=== PATIENT | female | born 1940 | race Caucasian/White ===

== ENCOUNTER 2017-07-11 15:09 | Outpatient (CLI) | payer MEDICARE | END 2017-07-11 15:10 | disposition home or self-care (01) | LOC: LABHHL 15:09 | PROVIDERS: ATTEND Surgery | DX: D24.1 Benign neoplasm of right breast (principal) | CPT/HCPCS: 88305 ==

== ENCOUNTER 2018-08-04 08:32 | Outpatient (CLI) | payer MEDICARE ==
--- NOTE | 2018-08-05 15:16 | Magnetic Resonance Report ---
BILATERAL BREAST MRI WITHOUT AND WITH CONTRAST: 08/04/18 08:32:00 CLINICAL: Breast cancer survivor status post left mastectomy. Recent abnormal mammogram with an asymmetry identified only on the MLO view. COMPARISON:06/30/18 mammogram. TECHNIQUE: Axial 1.0-mm T1 without, axial high resolution 2.0-mm T2 and axial 1.0-mm dynamic Vibrant high-resolution postcontrast T1 fat saturation sequences on a 1.5 Stephanie magnet. The examination was performed with an 8 channel dedicated [place] breast coil. Post processing with CAD and subtraction was performed on an [employer] workstation. 15.0 cc of Multihance was injected without incident for the contrast portion of the exam. Consent was obtained prior to the administration of the contrast. FINDINGS: Right: Minimal background parenchymal enhancement. No suspicious mass or suspicious enhancement. An irregular nonenhancing mass of the upper inner quadrant approximately 11 cm from the nipple measures 1.2 x 1.4 x 0.8 cm. The mass correlates with the mammographic asymmetry and demonstrates a significant fatty component which suppresses with subtraction. No other mass. No suspicious lymph nodes. Left: Status post left mastectomy. No mass or suspicious enhancement of the left chest wall. No suspicious lymph nodes. IMPRESSION: 1. A benign 1.2 cm right breast mass at 1 o'clock 11 cm from the nipple. Benign fibroadenolipoma and benign fat necrosis are both possibilities in the differential. 2. No suspicious mass or enhancement. BI-RADS 2 - - Benign
== END 2018-08-04 08:33 | disposition home or self-care (01) ==
LOC: SPVIMAG 08:32
PROVIDERS: ATTEND Surgery
DX: N63.12 Unspecified lump in the right breast, upper inner quadrant (principal); Z85.3 Personal history of malignant neoplasm of breast
CPT/HCPCS: A9577; C8908; 77059